=== PATIENT | female | born 1940 | race Caucasian/White ===

== ENCOUNTER → 2018-12-18 | Outpatient (CLI) | payer OTHER ==
[~2018-12-18] MED LIST: ACETAMINOPHEN-1 EAC1 PO; ALLEGRA ALLERG180 MG PO; ASPIR 8181 MG PO; CARDIZEM CD 18180 M3 PO; COUMADIN 5 MG TA5 M1 PO; EPIPEN 2-P0.3 MG/0.3 IM; FLECAINIDE ACET50 M1 PO; GLUCOPHAGE500 MG PO; JANUVIA100 MG PO; LISINOPRIL5 MG PO; NASACORT10.8 ML NS; POTASSIUM20; PRADAXA150 MG PO; PREDNISONE50 MG PO; VICTOZA0.6 MG/0.1 SQ; VYTORIN 10-201 EACH PO; ZANAFLEX2 MG PO
== END ==
LOC: CAT 13:45
DX: R91.1 Solitary pulmonary nodule (principal); K76.89 Other specified diseases of liver; I25.10 Atherosclerotic heart disease of native coronary artery without angina pectoris; Z88.8 Allergy status to other drugs, medicaments and biological substances

== ENCOUNTER → 2019-06-14 | Outpatient (CLI) | payer OTHER | LOC: CAT 08:08 | DX: R91.1 Solitary pulmonary nodule (principal) ==

== ENCOUNTER → 2019-07-10 | Outpatient (CLI) | payer OTHER | LOC: SJCVC 13:28 | DX: I48.0 Paroxysmal atrial fibrillation (principal); I49.3 Ventricular premature depolarization; I10 Essential (primary) hypertension; E78.5 Hyperlipidemia, unspecified ==

== ENCOUNTER → 2020-01-08 | Outpatient (CLI) | payer OTHER | LOC: SJCVCIMAG 07:40 | PROVIDERS: ATTEND Internal Medicine Cardiovascular Disease | DX: I48.0 Paroxysmal atrial fibrillation (principal); R94.31 Abnormal electrocardiogram [ECG] [EKG]; I49.3 Ventricular premature depolarization; I10 Essential (primary) hypertension; E78.00 Pure hypercholesterolemia, unspecified; E11.9 Type 2 diabetes mellitus without complications; Z79.899 Other long term (current) drug therapy ==

== ENCOUNTER → 2020-06-12 | Outpatient (CLI) | payer OTHER | LOC: CAT 11:52 | PROVIDERS: ATTEND Pediatrics | DX: R91.1 Solitary pulmonary nodule (principal); K76.89 Other specified diseases of liver; I25.10 Atherosclerotic heart disease of native coronary artery without angina pectoris ==

== ENCOUNTER → 2020-08-07 | Outpatient (CLI) | payer OTHER | LOC: SJCVC 14:48 | PROVIDERS: ATTEND Internal Medicine Cardiovascular Disease | DX: I48.0 Paroxysmal atrial fibrillation (principal); I49.3 Ventricular premature depolarization; I10 Essential (primary) hypertension; E78.5 Hyperlipidemia, unspecified; E11.9 Type 2 diabetes mellitus without complications; G47.33 Obstructive sleep apnea (adult) (pediatric); E66.3 Overweight; R06.00 Dyspnea, unspecified; Z88.1 Allergy status to other antibiotic agents; Z88.8 Allergy status to other drugs, medicaments and biological substances; Z79.899 Other long term (current) drug therapy; Z79.84 Long term (current) use of oral hypoglycemic drugs; Z72.89 Other problems related to lifestyle ==

== ENCOUNTER 2020-09-11 10:25 | Emergency (ER) | payer OTHER ==
[~2020-09-11] VITALS: Ht 167.6 cm; Wt 81.7 kg
[2020-09-11 12:10] LABS: ABSOLUTE NEUTROPHILS 3.4 thou/uL (1.4-8.2); EOSINOPHILS 2.5 % (0.0-3.0); HEMATOCRIT 41.5 % (37.0-47.0); HEMOGLOBIN 13.5 gm/dL (12.0-15.0); LYMPHOCYTES 16.8 % (24.0-44.0); MCH 30.2 pg (26.0-34.0); MCHC 32.5 g/dL (28.0-37.0); MCV 92.8 fL (80.0-100.0); MONOCYTES 12.3 % (1.0-8.0); PLATELET COUNT 197 thou/uL (150-400); POLYS 67.4 % (36.0-66.0); RBC 4.47 mil/uL (4.20-5.00); RDW 14.9 % (10.5-14.5); WBC 5.1 thou/uL (4.0-11.0)
[2020-09-11 12:14] LABS: ANION GAP 9 mmol/L (7-16); BUN 19 mg/dL (7-18); CALCIUM 8.9 mg/dL (8.5-10.1); CHLORIDE 104 mmol/L (98-107); CO2 24 mmol/L (21-32); GLUCOSE 159 mg/dL (74-106); POTASSIUM 4.2 mmol/L (3.5-5.1); SODIUM 137 mmol/L (136-145)
[2020-09-11 12:24] LABS: ALBUMIN 3.7 g/dL (3.4-5.0); DIRECT BILIRUBIN 0.1 mg/dL (<0.1-0.2); SGOT 24 U/L (15-37); SGPT 27 U/L (30-65); TOTAL BILIRUBIN 0.5 mg/dL (0.2-1.0); TROPONIN-I <0.06 ng/mL (<0.06)
[2020-09-11 13:48] LABS: LARGE PLATELETS OCCASIONAL
[2020-09-11 13:50] VITALS: BP 111/61
--- NOTE | 2020-09-11 15:30 | EKG ---
[address] [address] ELECTROCARDIOGRAM REPORT Name: DIMITRI ELMORE Room #: [facility]#: [id number] Admission: 09/11/20 Attend Phys: Discharge: 09/11/20 Date of : 44 Report #: [id number] [facility] [place] [place] ED Test Date: 2020-09-11 Test Time: 10:28:44 Pat Name: DIMITRI RAMÍREZ Department: Room: Gender: F [employer] Manager: JCHAIBRAN : 1940 Requested By: Tammy Spaulding Order Number: [id number] MD: Bernard Betancourt Measurements Intervals [place] Rate: 68 P: 50 WI: 192 QRS: -36 QRSD: 96 T: 34 QT: 409 QTc: 436 Interpretive Statements Sinus rhythm Left axis deviation RSR' in V1 or V2, probably normal variant Compared to ECG 04/29/2009 06:57:46 Left-axis deviation now present RSR' in V1 or V2 now present Electronically Signed On 09-11-2020 15:30:15 CDT by Bernard Betancourt [email or web address] <ELECTRONICALLY SIGNED> By: Bernard Betancourt MD, [facility] 09/11/20 1530 1028 1028 Bernard Betancourt MD, [facility] /EPI
== END 2020-09-11 13:51 | disposition home or self-care (01) ==
LOC: ER 10:25
PROVIDERS: Emergency Medicine
DX: R07.89 Other chest pain (principal); E11.9 Type 2 diabetes mellitus without complications; I48.91 Unspecified atrial fibrillation; Z88.1 Allergy status to other antibiotic agents; Z88.8 Allergy status to other drugs, medicaments and biological substances; Z79.899 Other long term (current) drug therapy; Z90.89 Acquired absence of other organs

== ENCOUNTER 2020-09-16 13:58 | Emergency (ER) | payer OTHER ==
[~2020-09-16] VITALS: Ht 167.6 cm; Wt 81.7 kg
[2020-09-16 14:50] LABS: ABSOLUTE NEUTROPHILS 3.9 thou/uL (1.4-8.2); BASOPHILS 0.6 % (0.0-2.0); EOSINOPHILS 1.6 % (0.0-3.0); HEMATOCRIT 41.5 % (37.0-47.0); HEMOGLOBIN 13.3 gm/dL (12.0-15.0); LYMPHOCYTES 16.1 % (24.0-44.0); MCH 29.8 pg (26.0-34.0); MCHC 32.1 g/dL (28.0-37.0); MCV 92.7 fL (80.0-100.0); PLATELET COUNT 201 thou/uL (150-400); POLYS 70.7 % (36.0-66.0); RBC 4.48 mil/uL (4.20-5.00); RDW 14.9 % (10.5-14.5); WBC 5.5 thou/uL (4.0-11.0)
[2020-09-16 15:02] LABS: APTT 62.1 Seconds (24.5-32.8); INR 1.35; PROTIME 14.5 Seconds (9.3-11.4)
[2020-09-16 15:05] LABS: URINE BILIRUBIN NEGATIVE (Negative); URINE BLOOD 3+ (Negative); URINE CLARITY CLEAR; URINE COLOR YELLOW; URINE GLUCOSE-RANDOM* TRACE (Negative); URINE KETONES TRACE (Negative); URINE LEUKOCYTES-REFLEX NEGATIVE (Negative); URINE NITRITE-REFLEX NEGATIVE (Negative); URINE PROTEIN (DIPSTICK) NEGATIVE (Negative); URINE SPECIFIC GRAVITY 1.015 (1.005-1.035); URINE UROBILINOGEN 0.2 E.U./dl (0.2-1.0)
[2020-09-16 15:14] LABS: ANION GAP 12 mmol/L (7-16); BUN 20 mg/dL (7-18); CHLORIDE 102 mmol/L (98-107); CO2 24 mmol/L (21-32); GLUCOSE 178 mg/dL (74-106); POTASSIUM 3.9 mmol/L (3.5-5.1); SODIUM 138 mmol/L (136-145)
[2020-09-16 15:22] LABS: BACTERIA-REFLEX None Seen /HPF (None Seen); CASTS None Seen /LPF (None Seen); CRYSTALS None Seen /LPF (None Seen); SQUAMOUS 0-3 Few /LPF (0-3); URINE WBC-REFLEX None Seen /HPF (0-5)
[2020-09-16 15:25] LABS: ALBUMIN 3.6 g/dL (3.4-5.0); AMYLASE 69 U/L (25-115); DIRECT BILIRUBIN 0.1 mg/dL (<0.1-0.2); LIPASE 186 U/L (73-393); SGOT 24 U/L (15-37); SGPT 32 U/L (14-59); TOTAL BILIRUBIN 0.5 mg/dL (0.2-1.0); TOTAL PROTEIN 6.8 g/dL (6.4-8.2); TROPONIN-I <0.06 ng/mL (<0.06)
[2020-09-16] MEDS ORDERED: TYLENOL325 M1 PO (17:13)
--- NOTE | 2020-09-16 17:32 | EKG ---
[place] [address] [facility] [place] [address] ELECTROCARDIOGRAM REPORT Name: JOSE MANUELDIMITRI BRUMFIELD [id number] Admission: 09/16/20 Attend Phys: Discharge: Date of : 44 Report #: [id number] [facility] ED Test Date: 2020-09-16 Test Time: 14:24:02 Pat Name: DIMITRI ELMORE Department: Room: Gender: F Proj Mgr: ELIZABET : 1940 Requested By: Sourav Bates Order Number: [id number] MD: Bart Garcia Measurements Intervals [place] Rate: 75 P: 65 DC: 182 QRS: -19 QRSD: 102 T: 40 QT: 394 QTc: 441 Interpretive Statements Sinus rhythm Borderline left axis deviation Compared to ECG 09/11/2020 10:28:44 No significant changes Electronically Signed On 09-16-2020 17:31:50 CDT by Bart Garcia [email or web address] <ELECTRONICALLY SIGNED> By: Bart Garcia MD, [facility] 09/16/20 1731 1424 1424 Bart Garcia MD, [facility] /EPI
[2020-09-16 18:05] VITALS: BP 131/66
== END 2020-09-16 18:06 | disposition home or self-care (01) ==
LOC: ER 13:58
PROVIDERS: Emergency Medicine
DX: S80.02XA Contusion of left knee, initial encounter (principal); S80.01XA Contusion of right knee, initial encounter; S50.11XA Contusion of right forearm, initial encounter; E11.9 Type 2 diabetes mellitus without complications; I48.91 Unspecified atrial fibrillation; Z90.49 Acquired absence of other specified parts of digestive tract; Z90.89 Acquired absence of other organs; Z79.899 Other long term (current) drug therapy; Z88.1 Allergy status to other antibiotic agents; Z88.8 Allergy status to other drugs, medicaments and biological substances; V47.5XXA Car driver injured in collision with fixed or stationary object in traffic accident, initial encounter; Y93.89 Activity, other specified; Y92.89 Other specified places as the place of occurrence of the external cause; Y99.8 Other external cause status

== ENCOUNTER → 2020-11-04 | Outpatient (CLI) | payer OTHER ==
[~2020-11-04] MED LIST changes: +TYLENOL325 M1 PO
== END ==
LOC: SJCVCIMAG 08:54
PROVIDERS: ATTEND Internal Medicine Cardiovascular Disease
DX: I48.0 Paroxysmal atrial fibrillation (principal); E78.00 Pure hypercholesterolemia, unspecified; I49.3 Ventricular premature depolarization; I10 Essential (primary) hypertension; E11.9 Type 2 diabetes mellitus without complications; Z72.89 Other problems related to lifestyle; Z79.899 Other long term (current) drug therapy; Z88.1 Allergy status to other antibiotic agents; Z88.8 Allergy status to other drugs, medicaments and biological substances